=== PATIENT | female | born 1965 | race Caucasian/White ===

== ENCOUNTER 2018-08-26 04:55 | Emergency (ER) | payer OTHER ==
[2018-08-26] MEDS ORDERED: ONDANSETRON 4 MG/2 ML VIAL ONE (05:09)
[2018-08-26] MEDS ORDERED: HYDROmorphONE/DILAUDID 1 MG/ML INJ ONE (05:09)
[2018-08-26] MEDS ORDERED: NS 1,000 ML IV ONE (05:14)
[2018-08-26] MEDS ORDERED: ONDANSETRON 4 MG/2 ML VIAL IVP ONE (05:16)
[2018-08-26] MEDS ORDERED: KETOROLAC 15 MG/1 ML SDV ONE (05:21)
[2018-08-26] MEDS ORDERED: HYDROmorphONE/DILAUDID 1 MG/ML INJ IVP ONE ×2 (05:22→05:40)
[2018-08-26] MEDS ORDERED: KETOROLAC 15 MG/1 ML SDV IVP ONE (05:22)
[2018-08-26 05:47] LABS: PLATELET COUNT 220 10^3/uL (150-400)
--- NOTE | 2018-08-26 05:55 | EDPHY ---
H & P Stated Complaint: R flank pain, Hx kidney stones Time Seen by Provider: 08/26/18 05:38 HPI/ROS: HPI The patient presents with right-sided flank pain which began at 3:00 a.m. Suddenly and awoke her from sleep. The pain is achy, constant, associated with nausea and vomiting. She does not have any dysuria, hematuria. She does not have a fever. She has a history of polycystic kidney disease and has had both pyelonephritis and ureterolithiasis requiring retrieval. Her urologist is Dr. Cruz.. REVIEW OF SYSTEMS 10 systems were reviewed and negative with the exception of the elements mentioned in the history of present illness. PMHx: Polycystic kidney disease, hypertension Soc Hx: Here with her PHYSICAL General Appearance: Alert, no distress Eyes: Pupils equal and round no pallor or injection ENT, Mouth: Mucous membranes moist Respiratory: There are no retractions, lungs are clear to auscultation Cardiovascular: Regular rate and rhythm Gastrointestinal: Abdomen is soft and non-tender, no masses, bowel sounds normal Neurological: A&O, moves all extremities Skin: Warm and dry, no rashes Musculoskeletal: Neck is supple non tender Extremities: symmetrical, full range of motion Psychiatric: Patient is oriented X 3, there is no agitation Source: Patient Exam Limitations: No limitations - Personal History LMP (Females 10-55): 8-14 Days Ago Current Tetanus/Diphtheria Vaccine: Yes Current Tetanus Diphtheria and Acellular Pertussis (TDAP): Yes - Medical/Surgical History Hx Asthma: No Hx Chronic Respiratory Disease: No Hx Diabetes: No Hx Cardiac Disease: No Hx Renal Disease: Yes Hx Cirrhosis: No Hx Alcoholism: No Hx HIV/AIDS: No Hx Splenectomy or Spleen Trauma: No Other PMH: pmh- Polycystic kidney dz, htn - Social History Smoking Status: Never smoked Constitutional: Initial Vital Signs Temperature (C) 36.6 C 08/26/18 05:04 Heart Rate 77 08/26/18 05:04 Respiratory Rate 16 08/26/18 05:04 Blood Pressure 167/73 H 08/26/18 05:04 O2 Sat (%) 95 08/26/18 05:04 O2 Delivery Mode Room Air Allergies/Adverse Reactions: No Known Allergies Allergy (Verified 08/26/18 09:46) Home Medications: Medication Instructions Recorded DULoxetine [Cymbalta 60 MG (*)] 60 mg PO DAILY 08/26/18 Phenazopyridine HCl [Urinary Pain 1 - 2 tab PO TID PRN 08/26/18 Relief] Medical Decision Making - Diagnostics Imaging Results: Ultrasound kidneys shows polycystic kidney disease bilaterally with stones in both kidneys, there is mild right-sided hydronephrosis with no ureteral jet seen on the right, interpreted by direct Radiology. Imaging: I viewed and interpreted images myself Differential Diagnosis: 53-year-old female with history of polycystic kidney disease, ureterolithiasis, pyelonephritis presents from home with right-sided flank pain for the last several hours associated with nausea and vomiting. I suspect ureterolithiasis though also consider pyelonephritis, less likely appendicitis or diverticulitis. In the emergency department, patient received IV fluid, Zofran, medication for pain. Labs were checked, renal function was normal UA demonstrates hematuria. Ultrasound was ordered. Patient had labs demonstrating normal renal function and hematuria with no signs of urinary infection. She felt better after receiving fluids and medication for pain. Ultrasound demonstrated mild right-sided hydro though did not identify any obstructing stone. She feels well enough to go home and will be discharged with a strainer for her urine. She does follow with Dr. Cruz of Urology and I have advised her to make a follow-up appointment with him. She was given medication for pain. - Data Points Laboratory Results: Laboratory Results 08/26/18 05:20 08/26/18 05:20 Medications Given: Discontinued Medications Hydromorphone HCl (Dilaudid) 0.5 mg IVP EDNOW ONE Stop: 08/26/18 05:23 Last Admin: 08/26/18 05:24 Dose: 0.5 mg Hydromorphone HCl (Dilaudid) 0.5 mg IVP EDNOW ONE Stop: 08/26/18 05:41 Last Admin: 08/26/18 05:41 Dose: 0.5 mg Sodium Chloride (Ns) 1,000 mls @ 0 mls/hr IV ONCE ONE; Wide Open PRN Reason: Protocol Stop: 08/26/18 05:15 Last Admin: 08/26/18 05:17 Dose: 1,000 mls Ketorolac Tromethamine (Toradol) 15 mg IVP EDNOW ONE Stop: 08/26/18 05:23 Last Admin: 08/26/18 05:23 Dose: 15 mg Ondansetron HCl (Zofran) 4 mg IVP EDNOW ONE Stop: 08/26/18 05:17 Last Admin: 08/26/18 05:18 Dose: 4 mg Ondansetron HCl (Zofran Odt 4 Mg Prepack#2) 1 btl TAKEHOME EDNOW ONE Stop: 08/26/18 06:41 Last Admin: 08/26/18 07:33 Dose: 1 btl Oxycodone/Acetaminophen (Percocet 5/325mg Prepack#4) 1 btl TAKEHOME EDNOW ONE Stop: 08/26/18 06:41 Last Admin: 08/26/18 07:32 Dose: 1 btl Departure - Departure Disposition: Home, Routine, Self-Care Clinical Impression: Ureterolithiasis Condition: Good Instructions: Oxycodone/Acetaminophen (By mouth), Ondansetron (By injection), Renal Colic (ED) Additional Instructions: 1. Take Ibuprofen or Motrin 600 mg by mouth three times a day. 2. Percocet as needed for severe pain 3. Flomax as directed 4. Zofran as needed for nausea 5. Strain urine as directed 6. Return to the Emergency Department for intractable pain, fever or vomiting. 7. Followup with the urologist you have been referred to for unimproved symptoms. Referrals: Magdaleno Cruz MD [Medical Doctor] - As per Instructions
[2018-08-26] MEDS ORDERED: OXYCODONE/APAP 5/325MG PREPACK#4 BTL TAKEHOME ONE (06:40)
[2018-08-26] MEDS ORDERED: ONDANSETRON 4MG PREPACK#2 BTL TAKEHOME ONE (06:40)
[2018-08-26 07:12] VITALS: BP 152/82
[2018-08-27] MEDS ORDERED: fentaNYL 250 MCG/5 ML INJ ONE (12:17)
[2018-08-27] MEDS ORDERED: GLYCOPYRROLATE 0.2 MG/1 ML VIAL ONE (12:18)
[2018-08-27] MEDS ORDERED: PROPOFOL 200 MG/20 ML VIAL ONE (12:18)
[2018-08-27] MEDS ORDERED: ROCURONIUM 50 MG/5 ML VIAL ONE (12:18)
[2018-08-27] MEDS ORDERED: PROPOFOL/EMULSION 500 MG/50 ML BOTTLE IV ONE (12:18)
[2018-08-27] MEDS ORDERED: ONDANSETRON 4 MG/2 ML VIAL ONE (12:19)
[2018-08-27] MEDS ORDERED: KETOROLAC 30 MG/1 ML SDV ONE (13:17)
[2018-08-27] MEDS ORDERED: DEXAMETHASONE 4 MG/ML VIAL ONE (13:17)
[2018-08-27] MEDS ORDERED: SUGAMMADEX SODIUM 200 MG/2 ML VIAL IVP ONE (13:40)
== END 2018-08-26 07:41 | disposition home or self-care (01) ==
DX: N20.1 Calculus of ureter (principal); Q61.3 Polycystic kidney, unspecified; I10 Essential (primary) hypertension; E86.9 Volume depletion, unspecified
CPT/HCPCS: 96374; J1100; J1170; J1885; J2405; J2704; J3010

== ENCOUNTER 2018-08-26 09:44 | Observation (INO) | payer OTHER ==
--- NOTE | 2018-08-26 10:02 | EDPHY ---
H & P Stated Complaint: dx with r kidney stone unable to manage pain/nausea at home Time Seen by Provider: 08/26/18 10:02 HPI/ROS: HPI: This is a 53-year-old female who presents with Chief Complaint: dx with r kidney stone unable to manage pain/nausea at home Location: Right flank Quality: Pain and stone Duration: Since yesterday at 3:00 a.m. Signs and Symptoms: no fever, + nausea, + vomiting, no hematemesis, no blood in stool, no abdominal bloating, no diarrhea, no back pain, no urinary symptoms, no vaginal bleeding/discharge, no indigestion, no chest pain, no shortness of breath Timing: Acute Severity: Moderate to severe Context: Patient has a history of polycystic kidney disease, hypertension, kidney stones followed by Urology Dr. Cruz, re-presented to the ER 4 hr after being discharged with continued right flank pain, nausea and 2 episodes of vomiting. Patient reports that she took the Zofran but still vomited x2. The Percocet is not controlling her pain. She has urinated twice since leaving the ER but only scant amounts. She denies it being dark in color. Modifying Factors: See above Comment: ROS: A comprehensive 10 system review of systems is otherwise negative aside from elements mentioned in the history of present illness. MEDICAL/SURGICAL/SOCIAL HISTORY: Medical history: Polycystic kidney dz, htn, kidney stones. LMP 1-2 weeks ago. Surgical history: Denies Social history: Nonsmoker. . Family history noncontributory. CONSTITUTIONAL: Moderate distress, polite and cooperative, nontoxic-appearing, writhing in bed, middle-aged white female, at bedside, awake and alert HEENT: Atraumatic and normocephalic, PERRL, EOMI. Nares patent; no rhinorrhea; no nasal mucosal edema. Tympanic membranes clear. Oropharynx clear, no exudate and moist pink mucosa. Airway patent. No lymphadenopathy. No meningismus. Cardiovascular: Normal S1/S2, regular rate, regular rhythm, without murmur rub or gallop. PULMONARY/CHEST: Symmetrical and nontender. Clear to auscultation bilaterally. Good air movement. No accessory muscle usage. ABDOMEN: Soft, nondistended, moderate right flank tenderness, no rebound, + guarding, no peritoneal signs, no masses or organomegaly. No CVAT. EXTREMITIES: 2/2 pulses, strength 5/5, no deformities, no clubbing, no cyanosis or edema. NEUROLOGICAL: no focal neuro deficits. GCS 15. SKIN: Warm and dry, no erythema. no rash. Good capillary refill. Source: Patient, Old records Exam Limitations: No limitations - Personal History LMP (Females 10-55): 8-14 Days Ago Current Tetanus Diphtheria and Acellular Pertussis (TDAP): Yes - Medical/Surgical History Hx Asthma: No Hx Chronic Respiratory Disease: No Hx Diabetes: No Hx Cardiac Disease: No Hx Renal Disease: Yes Hx Cirrhosis: No Hx Alcoholism: No Hx HIV/AIDS: No Hx Splenectomy or Spleen Trauma: No Other PMH: pmh- Polycystic kidney dz, htn kidney stones - Social History Smoking Status: Never smoked Constitutional: Initial Vital Signs Temperature (C) 36.4 C 08/26/18 09:47 Heart Rate 72 08/26/18 09:47 Respiratory Rate 17 08/26/18 09:47 Blood Pressure 161/90 H 08/26/18 09:47 O2 Sat (%) 96 08/26/18 09:47 O2 Delivery Mode Room Air Allergies/Adverse Reactions: No Known Allergies Allergy (Verified 08/26/18 09:46) Home Medications: Medication Instructions Recorded DULoxetine [Cymbalta 60 MG (*)] 60 mg PO DAILY 08/26/18 Phenazopyridine HCl [Urinary Pain 1 - 2 tab PO TID PRN 08/26/18 Relief] Medical Decision Making - Diagnostics Imaging Results: Imaging Impressions Abdomen/Pelvis CT 08/26/18 11:20 Impression: 1. Bilateral nephrolithiasis. 2. 3 adjacent calculi proximal right ureter as well as an additional calculus distal right ureter above the UVJ with mild to moderate right-sided hydronephrosis. 3. Polycystic kidney disease with numerous liver cysts also noted. Attention: This CT examination is specifically designed to evaluate patients who are clinically suspected of having acute obstructive uropathy. This examination does not use radiographic contrast, and as such, provides only a limited evaluation of the abdomen, pelvis and retroperitoneum. If there is further clinical suspicion for pathological conditions other than obstructive uropathy, a complete CT evaluation of the abdomen and pelvis utilizing intravenous, oral, and rectal contrast should be considered. Findings discussed with Citlali Jones PAC at 12:51 hour, 08/26/2018. ED Course/Re-evaluation: Vital signs reviewed and show elevated blood pressure likely secondary to pain. IV access, laboratory studies, urinalysis ordered Patient given 2 L normal saline, IV fentanyl 100 mcg, and IV Zofran 4 mg, IV Toradol 15 mg 1010: Reviewed chart which shows retroperitoneal abdomen completed this morning which showed mild right-sided hydronephrosis with ureteral jet was not visualized on the right as well as within the bladder this could represent secondary findings of right-sided ureteral calculus. 1011: CT abdomen and pelvis without scan ordered. 1119: Urinalysis shows 1+ ketones but no blood, no signs of infection. 1140: Labs reviewed. No leukocytosis, macrocytosis without anemia, no platelet dysfunction, potassium 3.9, creatinine 1.0 1210: Notified by RN that patient still complaining of pain. IV fentanyl 100 mcg and IV promethazine 12.5 mg given 1300: Called by Dr. Moran who reports that CT scan shows for ureteral stones 3 or proximal to the UVJ measuring around 3 mm in 1 is distal to the UVJ measuring 4 x 3 mm 1303: Assessed patient who reports that fentanyl has no benefit and is requesting Dilaudid. IV Dilaudid 1 mg and p. O. Flomax given. She is amenable to admission for uncontrolled pain, uncontrolled nausea, ureterolithiasis with moderate hydronephrosis. ED decision made to consult hospitalist and [facility]. Spoke with Dr. Fernandez who kindly agrees to admit patient to Dr. Patel with intractable right flank pain, multiple ureteral stones, moderate hydronephrosis and inability to take oral medications. Spoke with Dr. Patel, urology, who kindly agrees to consult on patient-advises Flomax, Toradol 15 mg Q 6, nifedipine 10 mg twice daily. This patient was seen under the supervision of my secondary supervising physician. I evaluated care for this patient with attending. Discussed this patient with Dr. Garcia. Differential Diagnosis: Flank pain including but not limited to musculoskeletal causes, kidney stone, pyelonephritis, shingles, and intra-abdominal causes such as diverticulitis and appendicitis. - Data Points Laboratory Results: Laboratory Results 08/26/18 10:40 08/26/18 10:40 08/26/18 08/26/18 08/26/18 10:40 10:40 10:40 WBC 9.12 10^3/uL 10^3/uL (3.80-9.50) RBC 4.16 10^6/uL L 10^6/uL (4.18-5.33) Hgb 14.4 g/dL g/dL (12.6-16.3) Hct 42.9 % % (38.0-47.0) MCV 103.1 fL H fL (81.5-99.8) MCH 34.6 pg H pg (27.9-34.1) MCHC 33.6 g/dL g/dL (32.4-36.7) RDW 11.9 % % (11.5-15.2) Plt Count 199 10^3/uL 10^3/uL (150-400) MPV 9.4 fL fL (8.7-11.7) Neut % (Auto) 80.2 % H % (39.3-74.2) Lymph % (Auto) 12.0 % L % (15.0-45.0) [place] % (Auto) 7.0 % % (4.5-13.0) Eos % (Auto) 0.1 % L % (0.6-7.6) Baso % (Auto) 0.3 % % (0.3-1.7) Nucleat RBC Rel Count 0.0 % % (0.0-0.2) Absolute Neuts (auto) 7.31 10^3/uL H 10^3/uL (1.70-6.50) Absolute Lymphs (auto) 1.09 10^3/uL 10^3/uL (1.00-3.00) Absolute Monos (auto) 0.64 10^3/uL 10^3/uL (0.30-0.80) Absolute Eos (auto) 0.01 10^3/uL L 10^3/uL (0.03-0.40) Absolute Basos (auto) 0.03 10^3/uL 10^3/uL (0.02-0.10) Absolute Nucleated RBC 0.00 10^3/uL 10^3/uL (0-0.01) Immature Gran % 0.4 % % (0.0-1.1) Immature Gran # 0.04 10^3/uL 10^3/uL (0.00-0.10) Sodium 138 mEq/L mEq/L (135-145) Potassium 3.9 mEq/L mEq/L (3.5-5.2) Chloride 100 mEq/L mEq/L (97-110) Carbon Dioxide 29 mEq/l mEq/l (22-31) Anion Gap 9 mEq/L mEq/L (6-14) BUN 18 mg/dL mg/dL (7-23) Creatinine 1.0 mg/dL mg/dL (0.6-1.0) Estimated GFR 58 Glucose 101 mg/dL H mg/dL (70-100) Calcium 8.8 mg/dL mg/dL (8.5-10.4) Urine Color YELLOW Urine Appearance MODERATELY TURBID Urine pH 9.0 H (5.0-7.5) Ur Specific [place] 1.011 (1.002-1.030) Urine Protein NEGATIVE (NEGATIVE) Urine Ketones 1+ H (NEGATIVE) Urine Blood NEGATIVE (NEGATIVE) Urine Nitrate NEGATIVE (NEGATIVE) Urine Bilirubin NEGATIVE (NEGATIVE) Urine Urobilinogen NEGATIVE EU EU (0.2-1.0) Ur Leukocyte Esterase NEGATIVE (NEGATIVE) Urine Glucose NEGATIVE (NEGATIVE) Medications Given: Discontinued Medications Fentanyl (Sublimaze) 100 mcg IVP EDNOW ONE Stop: 08/26/18 10:04 Last Admin: 08/26/18 10:58 Dose: 100 mcg Fentanyl (Sublimaze) 100 mcg IVP EDNOW ONE Stop: 08/26/18 12:10 Last Admin: 08/26/18 12:56 Dose: Not Given Hydromorphone HCl (Dilaudid) 1 mg IVP EDNOW ONE Stop: 08/26/18 13:04 Last Admin: 08/26/18 13:13 Dose: 1 mg Sodium Chloride (Ns) 1,000 mls @ 0 mls/hr IV ONCE ONE; Wide Open PRN Reason: Protocol Stop: 08/26/18 10:04 Last Admin: 08/26/18 10:58 Dose: 1,000 mls Ketorolac Tromethamine (Toradol) 15 mg IVP EDNOW ONE Stop: 08/26/18 10:05 Last Admin: 08/26/18 10:58 Dose: 15 mg Ondansetron HCl (Zofran) 4 mg IVP EDNOW ONE Stop: 08/26/18 10:04 Last Admin: 02/23/19 10:59 Dose: 4 mg Promethazine HCl (Phenergan) 12.5 mg IVP EDNOW ONE Stop: 08/26/18 11:57 Last Admin: 08/26/18 12:00 Dose: 12.5 mg Promethazine HCl (Phenergan) 12.5 mg IVP ONCE ONE Stop: 08/26/18 12:11 Last Admin: 08/26/18 12:56 Dose: Not Given Tamsulosin HCl (Flomax) 0.4 mg PO EDNOW ONE Stop: 08/26/18 13:15 Last Admin: 08/26/18 13:37 Dose: 0.4 mg Departure - Departure Disposition: [facility] Inpatient Acute Clinical Impression: Ureterolithiasis, Renal colic on right side, Hydronephrosis, right, Intractable abdominal pain, Unable to take medication Condition: Fair
[2018-08-26] MEDS ORDERED: fentaNYL 100 MCG/2 ML INJ IVP ONE ×2 (10:03→12:09)
[2018-08-26] MEDS ORDERED: NS 1,000 ML IV ONE (10:03)
[2018-08-26] MEDS ORDERED: ONDANSETRON 4 MG/2 ML VIAL IVP ONE (10:03)
[2018-08-26] MEDS ORDERED: KETOROLAC 15 MG/1 ML SDV IVP ONE (10:04)
[2018-08-26 10:57] LABS: PLATELET COUNT 199 10^3/uL (150-400)
[2018-08-26] MEDS ORDERED: PROMETHAZINE HCL 25 MG/ML INJ IVP ONE ×2 (11:56→12:10)
[2018-08-26] MEDS ORDERED: HYDROmorphONE/DILAUDID 2 MG/ML INJ IVP ONE (13:03)
[2018-08-26] MEDS ORDERED: TAMSULOSIN HCL 0.4 MG CAP PO ONE (13:14)
[2018-08-26] MEDS ORDERED: oxyCODONE IR 5 MG TAB PO PRN (13:44)
[2018-08-26] MEDS ORDERED: ONDANSETRON DISINTEGRATING 4 MG TAB PO PRN (13:44)
[2018-08-26] MEDS ORDERED: PROMETHAZINE HCL 25 MG/ML INJ IVP PRN (13:44)
[2018-08-26] MEDS ORDERED: ACETAMINOPHEN 325 MG TAB PO PRN (13:44)
--- NOTE | 2018-08-26 14:18 | PDGENHP ---
History and Physical - Chief Complaint right flank pain - History of Present Illness 53 yo F with PMH of polycystic kidney disease as well as nephrolithiasis presenting with severe right sided flank pain beginning at 3am. Pain woke her from sleep, was severe and associated with n/v. She was initially seen in ER this am and was discharged home with diagnosis of presumed kidney stone, but after returning home pain remained severe with profound n/v and inability to tolerate PO so she returned to ER. On return an abd CT was obtained showing 4 right sided ureteral stones with associated hydronephrosis. She is followed by Dr. Cruz of urology. Her pain is currently improved after receiving dilaudid and she does not currently complain of nausea. History Information - Allergies/Home Medication List Allergies/Adverse Reactions: No Known Allergies Allergy (Verified 08/26/18 09:46) Home Medications: DULoxetine [Cymbalta 60 MG (*)] 60 mg PO DAILY 08/26/18 [Last Taken 08/24/18] Phenazopyridine HCl [Urinary Pain Relief] 1 - 2 tab PO TID PRN 08/26/18 [Last Taken Unknown] I have personally reviewed and updated: family history, medical history, social history, surgical history - Past Medical History psychiatric history Additional medical history: polycystic kidney disease. uretero/nephrolithiasis - Surgical History Additional surgical history: lithotripsy and stone removal - Family History Additional family history: PKD in mother - Social History Smoking Status: Never smoked Alcohol Use: Rarely Drug Use: None Additional social history: , 3 adult children Review of Systems Review of Systems: ROS: 10pt was reviewed & negative except for what was stated in HPI & below Physical Exam Physical Exam: Temp Pulse Resp BP Pulse Ox 36.4 C 72 17 161/90 H 96 08/26/18 09:47 08/26/18 09:47 08/26/18 09:47 08/26/18 09:47 08/26/18 09:47 Constitutional: no apparent distress, appears nourished Eyes: PERRL, anicteric sclera Ears, Nose, Mouth, Throat: moist mucous membranes, hearing normal Cardiovascular: regular rate and rhythym, no murmur, rub, or gallop, No edema Respiratory: no respiratory distress, no rales or rhonchi, clear to auscultation Gastrointestinal: normoactive bowel sounds, soft, non-tender abdomen, tenderness (right cva tenderness) Genitourinary: no bladder tenderness Skin: warm, normal color Musculoskeletal: full muscle strength Neurologic: AAOx3 Psychiatric: interacting appropriately, not anxious, not encephalopathic Lab Data & Imaging Review 08/26/18 10:40 08/26/18 10:40 WBC 9.12 10^3/uL (3.80-9.50) 08/26/18 10:40 RBC 4.16 10^6/uL (4.18-5.33) L 08/26/18 10:40 Hgb 14.4 g/dL (12.6-16.3) 08/26/18 10:40 Hct 42.9 % (38.0-47.0) 08/26/18 10:40 MCV 103.1 fL (81.5-99.8) H 08/26/18 10:40 MCH 34.6 pg (27.9-34.1) H 08/26/18 10:40 MCHC 33.6 g/dL (32.4-36.7) 08/26/18 10:40 RDW 11.9 % (11.5-15.2) 08/26/18 10:40 Plt Count 199 10^3/uL (150-400) 08/26/18 10:40 MPV 9.4 fL (8.7-11.7) 08/26/18 10:40 Neut % (Auto) 80.2 % (39.3-74.2) H 08/26/18 10:40 Lymph % (Auto) 12.0 % (15.0-45.0) L 08/26/18 10:40 [place] % (Auto) 7.0 % (4.5-13.0) 08/26/18 10:40 Eos % (Auto) 0.1 % (0.6-7.6) L 08/26/18 10:40 Baso % (Auto) 0.3 % (0.3-1.7) 08/26/18 10:40 Nucleat RBC Rel Count 0.0 % (0.0-0.2) 08/26/18 10:40 Absolute Neuts (auto) 7.31 10^3/uL (1.70-6.50) H 08/26/18 10:40 Absolute Lymphs (auto) 1.09 10^3/uL (1.00-3.00) 08/26/18 10:40 Absolute Monos (auto) 0.64 10^3/uL (0.30-0.80) 08/26/18 10:40 Absolute Eos (auto) 0.01 10^3/uL (0.03-0.40) L 08/26/18 10:40 Absolute Basos (auto) 0.03 10^3/uL (0.02-0.10) 08/26/18 10:40 Absolute Nucleated RBC 0.00 10^3/uL (0-0.01) 08/26/18 10:40 Immature Gran % 0.4 % (0.0-1.1) 08/26/18 10:40 Immature Gran # 0.04 10^3/uL (0.00-0.10) 08/26/18 10:40 Sodium 138 mEq/L (135-145) 08/26/18 10:40 Potassium 3.9 mEq/L (3.5-5.2) 08/26/18 10:40 Chloride 100 mEq/L (97-110) 08/26/18 10:40 Carbon Dioxide 29 mEq/l (22-31) 08/26/18 10:40 Anion Gap 9 mEq/L (6-14) 08/26/18 10:40 BUN 18 mg/dL (7-23) 08/26/18 10:40 Creatinine 1.0 mg/dL (0.6-1.0) 08/26/18 10:40 Estimated GFR 58 08/26/18 10:40 Glucose 101 mg/dL (70-100) H 08/26/18 10:40 Calcium 8.8 mg/dL (8.5-10.4) 08/26/18 10:40 Urine Color YELLOW 08/26/18 10:40 Urine Appearance MODERATELY TURBID 08/26/18 10:40 Urine pH 9.0 (5.0-7.5) H 08/26/18 10:40 Ur Specific [place] 1.011 (1.002-1.030) 08/26/18 10:40 Urine Protein NEGATIVE (NEGATIVE) 08/26/18 10:40 Urine Ketones 1+ (NEGATIVE) H 08/26/18 10:40 Urine Blood NEGATIVE (NEGATIVE) 08/26/18 10:40 Urine Nitrate NEGATIVE (NEGATIVE) 08/26/18 10:40 Urine Bilirubin NEGATIVE (NEGATIVE) 08/26/18 10:40 Urine Urobilinogen NEGATIVE EU (0.2-1.0) 08/26/18 10:40 Ur Leukocyte Esterase NEGATIVE (NEGATIVE) 08/26/18 10:40 Urine Glucose NEGATIVE (NEGATIVE) 08/26/18 10:40 Visualized and Interpreted imaging results: Yes Interpretation: abd CT: polycystic kidneys, 3 proximal and 1 distal right sided ureteral stones with associated hydronephrosis Assessment & Plan Assessment: Ureterolithiasis (Acute) Renal colic on right side (Acute) Hydronephrosis, right (Acute) Intractable abdominal pain (Acute) Unable to take medication (Acute) 53 yo F with PMH of PKD and hx of nephrolithiasis admitted with severe right sided flank pain and ureterolithiasis # ureterolithiasis: patient with 4 small stones present in her right ureter with associated severe pain and n/v, mild associated hydronephrosis. She has been to ER twice today and essentially has not been able to tolerate OP management. Will start IVF, tamsulosin, IV opiates and antiemetics. Urology consulted and suspect she will require ureteral stent due to severity of her pain and that multiple stones involved. Will keep patient NPO after midnight. # polycystic kidney disease: with preserved renal function currently, patient more concerned regarding above due to this and underlying kidney issues, as above # n/v: likely largely due to pain, IV phenergan and zofran # macrocytosis: chronic, stable, patient denies significant etoh use, defer to op w/u # observation status, high risk requiring IV opiates Patient new to my care. Old records reviewed and summarized as above. Care plan reviewed with ER doctor, further hx obtained from patients present at bedside.
[2018-08-26] MEDS: ONDANSETRON 4 MG/2 ML VIAL IVP PRN ×2 (16:20→20:45)
[2018-08-26] MEDS: LORazepam 2 MG/ML INJ IVP PRN (16:28)
--- NOTE | 2018-08-26 16:32 | ASMTCMCOM ---
CM Note CM Note Notes: Pt admitted to hospital for kidney stones. No therapies ordered, anticipate she will dc home w/support of when medically stable. DC Plan: Independent Date Signed: 08/26/2018 04:31 PM Electronically Signed By:Sabrina Medrano RN
[2018-08-26] MEDS: HYDROmorphONE/DILAUDID 1 MG/ML INJ IVP PRN ×3 (18:45→23:57)
[2018-08-26] MEDS ORDERED: PHENAZOPYRIDINE HCL 100 MG TAB PO PRN (19:00)
[2018-08-26] MEDS: NS 1,000 ML IV SCH (23:03)
[2018-08-26] MEDS ORDERED: diphenhydrAMINE 25 MG CAP PO PRN (23:45)
[2018-08-27] MEDS: LORazepam 2 MG/ML INJ IVP PRN ×2 (00:44→19:59)
[2018-08-27] MEDS: HYDROCODONE/APAP 5/325 TAB PO PRN ×2 (04:36→08:22)
[2018-08-27 04:55] LABS: PLATELET COUNT 155 10^3/uL (150-400)
[2018-08-27] MEDS: NS 1,000 ML IV SCH (05:28)
[2018-08-27] MEDS: TAMSULOSIN HCL 0.4 MG CAP PO SCH (08:22)
[2018-08-27] MEDS: ONDANSETRON 4 MG/2 ML VIAL IVP PRN (08:26)
[2018-08-27] MEDS ORDERED: LIDOCAINE 2% JELLY 20 ML (UROJECT) ONE (11:00)
[2018-08-27] MEDS ORDERED: IOPAMIDOL (ISOVUE-M 300) 15 ML VIAL ONE (11:01)
[2018-08-27] MEDS ORDERED: MIDAZOLAM 2 MG/2 ML VIAL ONE (11:58)
[2018-08-27] MEDS ORDERED: MIDAZOLAM 2 MG/2 ML VIAL IVP ONE (11:59)
--- NOTE | 2018-08-27 12:02 | PDANEPAE ---
ANE History of Present Illness Right flank pain. Ureteral stones ANE Past Medical History - Cardiovascular History Hx Hypertension: No Hx Arrhythmias: No Hx Chest Pain: No Hx Coronary Artery / Peripheral Vascular Disease: No Hx CHF / Valvular Disease: No Hx Palpitations: No - Pulmonary History Hx COPD: No Hx Asthma/Reactive Airway Disease: No Hx Recent Upper Respiratory Infection: No Hx Oxygen in Use at Home: No Hx Sleep Apnea: No Sleep Apnea Screening Result - Last Documented: Negative - Endocrine History Hx Diabetes: No Hypothyroid: No Hyperthyroid: No Obesity: no - Renal History Hx Renal Disorders: Yes - Chronic Pain History Chronic Pain: No ANE Review of Systems Review of Systems: - Exercise capacity METS (RN): 4 METS ANE Patient History - Allergies Allergies/Adverse Reactions: No Known Allergies Allergy (Verified 08/26/18 09:46) - Home Medications Home Medications: DULoxetine [Cymbalta 60 MG (*)] 60 mg PO DAILY 08/26/18 [Last Taken 08/24/18] Phenazopyridine HCl [Urinary Pain Relief] 1 - 2 tab PO TID PRN 08/26/18 [Last Taken Unknown] - NPO status NPO Status: no food or drink >8 hours NPO Since - Liquids (Date): 08/27/18 NPO Since - Liquids (Time): 00:01 NPO Since - Solids (Date): 08/27/18 NPO Since - Solids (Time): 00:01 - Anes Hx Anes Hx: post operative nausea - Smoking Hx Smoking Status: Never smoked - Alcohol Use Alcohol Use: Rarely - Family Anes Hx Family Anes Hx: none ANE Labs/Vital Signs - Labs Result Diagrams: 08/27/18 04:44 08/27/18 04:44 - Vital Signs Blood Pressure: 140/91 Heart Rate: 82 Respiratory Rate: 16 O2 Sat (%): 94 Height: 172.72 cm Weight: 58.2 kg ANE Physical Exam - Airway Neck exam: FROM Mallampati Score: Class 1 - Pulmonary Pulmonary: no respiratory distress, no rales or rhonchi - Cardiovascular Cardiovascular: regular rate and rhythym, no murmur, rub, or gallop - ASA Status ASA Status: II ANE Anesthesia Plan Anesthesia Plan: general endotracheal anesthesia
[2018-08-27] MEDS ORDERED: CEFAZOLIN 2 GM/DEXTROSE/100 ML BAG IV ONE (12:44)
--- NOTE | 2018-08-27 12:51 | SOAPPROG ---
SHAHRZAD Progress Note Assessment/Plan: Assessment: Still w pain, interested in definitive mgmt, reasonable here as this has not improved w definitive mgmt - Plan: 1. To OR for right ureteroscopy 08/27/18 12:47 Objective: Vital Signs Temp Pulse Resp BP Pulse Ox 36.4 C 82 16 140/91 H 94 08/27/18 11:50 08/27/18 12:02 08/27/18 12:02 08/27/18 12:02 08/27/18 12:02 Laboratory Results 08/27/18 04:44 08/27/18 04:44 08/26/18 08/27/18 08/28/18 05:59 05:59 05:59 Intake Total 3150 Output Total 1525 Balance 1625 - Time Spent With Patient Time Spent With Patient: 33 min - Pending Discharge Pending Discharge Within 24 Hours: Yes Pending Discharge Date: 08/28/18 Pending Discharge Time: 11:00 Physical Exam - Physical Exam EENT: PERRL/EOMI Neck: non-tender Respiratory: chest non-tender Cardiac/Chest: normal peripheral pulses Abdomen: other (CVA tenderness) Pelvic Exam: deferred Rectal: deferred Back: Normal inspection Skin: normal color Lymphatic: no adenopathy Extremities: normal range of motion Neuro/Psych: no motor/sensory deficits ICD10 Worksheet Patient Problems: Problems Problem Status Onset Hydronephrosis, right Acute Intractable abdominal pain Acute Renal colic on right side Acute Unable to take medication Acute Ureterolithiasis Acute Pyelonephritis Acute
[2018-08-27] MEDS ORDERED: NALOXONE HCL 0.4 MG/ML INJ IVP PRN (13:58)
[2018-08-27] MEDS ORDERED: HYDROmorphONE/DILAUDID 2 MG/ML INJ IVP PRN (13:58)
[2018-08-27] MEDS ORDERED: ONDANSETRON 4 MG/2 ML VIAL IVP PRN (13:58)
[2018-08-27] MEDS ORDERED: fentaNYL 100 MCG/2 ML INJ IVP PRN (13:58)
[2018-08-27] MEDS ORDERED: HYDROCODONE/APAP 5/325 TAB PO PRN (13:58)
--- NOTE | 2018-08-27 14:00 | POSTANESTH ---
Post Anesthetic Evaluation Cardiovascular Status: Normal, Stable Respiratory Status: Normal, Stable Level of Consciousness/Mental Status: Can Participate in Eval Pain Control: Adequate, Prn Tx Ordered Nausea/Vomiting Control: Adequate, Prn Tx Ordered Complications Possibly Related to Anesthesia: None Noted
[2018-08-27] MEDS ORDERED: ALBUTEROL 3 ML DEYVIAL ONE ×2 (14:06→14:43)
--- NOTE | 2018-08-27 14:16 | POSTOPPROG ---
Post Op Note Date of Operation: 08/27/18 Surgeon: Ottoniel Vu Anesthesia: GET(General Endotracheal) Pre-op Diagnosis: right ureteral stones x 4 Post-op Diagnosis: same Indication: obstructing stones and pain Procedure: right ureteroscopy and laser lithotripsy of stones , low pressure Findings: stones removed - stent placed - Inf/Abcess present in the surg proc area at time of surgery?: No Depth: Organ Space EBL: Minimal Total fluids administered: see rec Complications: none Drains: Other (stent, right, JJ)
[2018-08-27] MEDS ORDERED: HYDROmorphONE/DILAUDID 2 MG/ML INJ ONE (14:18)
[2018-08-27] MEDS ORDERED: ALBUTEROL 3 ML DEYVIAL IH ONE (14:23)
[2018-08-27] MEDS: DULoxetine 60 MG CAP PO SCH (15:57)
--- NOTE | 2018-08-27 16:01 | HOSPPROG ---
Hospitalist Progress Note Assessment/Plan: 53 yo F with PMH of PKD and hx of nephrolithiasis admitted with severe right sided flank pain and ureterolithiasis # ureterolithiasis: patient with 4 small stones present in her right ureter with associated severe pain and n/v, mild associated hydronephrosis. Urology consulted and patient now s/p ureteroscopy. Plan is for collection of 24 hour urine for better understanding of multiple stones at once and ongoing treatment options # heidi: 2/2 partially obstructive ureteral stones as above, expect this to improve now s/p intervention, given 24 hour urine collection planned will hold off on starting IVF for now until cleared by urology as don't want to affect the urine findings # polycystic kidney disease: per urology not likely to be contributing to her stone formation, chronic and stable issue, avoiding renal toxins # n/v: likely largely due to pain, IV phenergan and zofran # macrocytosis: chronic, stable, patient denies significant etoh use, defer to op w/u # observation status, high risk requiring IV opiates Subjective: no significant overnight events, patient s/p ureteroscopy today and feeling better Objective: Vital Signs Temp Pulse Resp BP Pulse Ox 36.7 C 80 16 149/82 H 94 08/27/18 15:00 08/27/18 15:00 08/27/18 15:00 08/27/18 15:00 08/27/18 15:00 Laboratory Results 08/27/18 04:44 08/27/18 04:44 08/26/18 08/27/18 08/28/18 05:59 05:59 05:59 Intake Total 3150 740 Output Total 1525 320 Balance 1625 420 Constitutional: no apparent distress, appears nourished Eyes: PERRL, anicteric sclera Ears, Nose, Mouth, Throat: moist mucous membranes, hearing normal Cardiovascular: regular rate and rhythym, no murmur, rub, or gallop, No edema Respiratory: no respiratory distress, no rales or rhonchi, clear to auscultation Gastrointestinal: normoactive bowel sounds, soft, non-tender abdomen, tenderness (right cva tenderness) Genitourinary: no bladder tenderness Skin: warm, normal color Musculoskeletal: full muscle strength Neurologic: AAOx3 Psychiatric: interacting appropriately, not anxious, not encephalopathic ICD10 Worksheet Patient Problems: Problems Problem Status Onset Hydronephrosis, right Acute Intractable abdominal pain Acute Renal colic on right side Acute Unable to take medication Acute Ureterolithiasis Acute Pyelonephritis Acute
--- NOTE | 2018-08-27 21:05 | GOP ---
[f rep st] OPERATIVE REPORT DATE OF OPERATION: SURGEON: Ottoniel Vu MD PREOPERATIVE DIAGNOSIS: Right ureteral obstructing stones, 4 obstructing stones. POSTOPERATIVE DIAGNOSIS: 1. Right ureteral obstructing stones, 4 obstructing stones. 2. Renal colic. 3. Hydronephrosis. PROCEDURE PERFORMED: FINDINGS: SPECIMENS: Stones sent to Pathology for analysis. INDICATIONS: The patient is a very pleasant 53-year-old female with right renal colic, severe hydron ephrosis, and flank pain. She has a history of polycystic kidney disease and stones in the past. I did discuss that we would remove the stones and place a stent. She is aware that the stent needs to be removed in approximately 2 to 3 weeks. She expresses understanding that it is not designed to sta y in and must be removed. She is brought to the operating room for management of this. DESCRIPTION OF PROCEDURE: Patient was identified by name, medical record number, and wrist band; bro ught to the operating room; laid supine on table; and prepped and draped in the standard surgical fas hion. A 20[place] cystoscope was inserted into the bladder, and the entire bladder was visualized. The left and right ureteral orifices were noted to be in normal location. A glidewire was inserted in the in the right ureter x2. Ureteroscope was passed up to the level of the stone. Lase r lithotripsy of all the stones was performed, and there were 4 stones. We basketed out all these fr agments, sent the largest to Pathology for analysis, and a JJ stent was passed and noted to curl in t he renal pelvis and bladder. The bladder was emptied, and the patient was awakened from anesthesia, taken to the recovery room in stable condition. DRAINS: JJ stent placed. /[id number]/MODL
--- NOTE | 2018-08-27 22:05 | GCON ---
[f rep st] CONSULTATION DATE OF CONSULTATION: 08/26/2018 REASON FOR CONSULTATION: Right obstructing ureteral stone and flank pain, renal colic and hydronephr osis. HISTORY OF PRESENT ILLNESS: This is a 53-year-old female with past medical history of polycystic kid juan disease and nephrolithiasis who presents with right severe flank pain. She has multiple stones i n her right kidney. She is a patient of Dr. eDan. She has a large ureteral stone at the UVJ and three smaller stones behind this. I was asked to evaluate her, and she agrees to a plan of Toradol, IV fluids, and tamsulosin. If this does not improve, then we will plan on removing the stone tomorro w. ALLERGIES: No known drug allergies. HOME MEDICATIONS: Duloxetine and phenazopyridine. PAST MEDICAL HISTORY: Significant for polycystic kidney disease and multiple stones in the past. PAST SURGICAL HISTORY: Significant for lithotripsy and stone removal in the past. FAMILY HISTORY: Significant for polycystic kidney disease. SOCIAL HISTORY: Never smoked. Alcohol use rarely. with 3 children. REVIEW OF SYSTEMS: A 10-point review of systems was negative except as stated below. PHYSICAL EXAMINATION: VITAL SIGNS: Stable. Afebrile. Pulse is 72, respiratory rate is 17, blood p ressure is 161/90. CONSTITUTIONAL: No acute distress. HEENT: Normocephalic, atraumatic. Moist. No JVD. No cyanosis. RESPIRATORY: No retractions or lower extremity edema. GASTROINTESTINAL: Rig ht CVA tenderness is present with right lower quadrant tenderness as well. Nondistended, otherwise n ormal abdominal exam. GENITOURINARY: No bladder tenderness. SKIN: Warm. No lesions. MUSCULOSKEL ETAL: Full muscle strength. NEUROLOGIC: Alert and oriented x3. PSYCHIATRIC: Normal mood and affe ct. LABS: White count is 9, H and H are 14 and 42, creatinine 1.0. ASSESSMENT AND PLAN: Polycystic kidneys, three small proximal and one large distal right ureteral st one. PLAN: Start IV fluids, tamsulosin, Toradol, and IV opiates and antiemetics. Patient was in agreemen t with this plan, and we will make her n.p.o. at midnight. /[id number]/[facility] [place]
[2018-08-28] MEDS: SIMETHICONE 80 MG TAB CHEW PO PRN ×2 (03:01→08:24)
[2018-08-28] MEDS: TAMSULOSIN HCL 0.4 MG CAP PO SCH (08:20)
[2018-08-28] MEDS: DULoxetine 60 MG CAP PO SCH ×2 (08:20→08:21)
[2018-08-28 08:50] VITALS: BP 150/68
--- NOTE | 2018-08-28 09:02 | HOSPPROG ---
Hospitalist Progress Note Assessment/Plan: 53 yo F with PMH of PKD and hx of nephrolithiasis admitted with severe right sided flank pain and ureterolithiasis ureterolithiasis: patient with 4 small stones present in her right ureter with associated severe pain and n/v, mild associated hydronephrosis. Urology consulted and patient now s/p ureteroscopy. will dc today on 30days flomax w outpt urolgy follow up heidi: 2/2 partially obstructive ureteral stones as above, expect this to improve now s/p intervention, resolved polycystic kidney disease: per urology not likely to be contributing to her stone formation, chronic and stable issue, avoiding renal toxins n/v: likely largely due to pain, IV phenergan and zofran macrocytosis: chronic, stable, patient denies significant etoh use, defer to op w/u observation status, high risk requiring IV opiates home today Subjective: feels well. ready for dc Objective: Vital Signs Temp Pulse Resp BP Pulse Ox 36.6 C 84 16 150/68 H 96 08/28/18 08:48 08/28/18 08:48 08/28/18 08:48 08/28/18 08:48 08/28/18 08:48 Laboratory Results 08/27/18 04:44 08/28/18 04:48 08/27/18 08/28/18 08/29/18 05:59 05:59 05:59 Intake Total 3150 1670 175 Output Total 1525 1220 Balance 1625 450 175 - Physical Exam Constitutional: no apparent distress, appears nourished Eyes: PERRL, anicteric sclera Ears, Nose, Mouth, Throat: moist mucous membranes, hearing normal Cardiovascular: regular rate and rhythym, no murmur, rub, or gallop Respiratory: no respiratory distress, no rales or rhonchi Gastrointestinal: normoactive bowel sounds, soft, non-tender abdomen Genitourinary: no bladder fullness, No lawson in urethra Skin: warm, normal color Musculoskeletal: full muscle strength ICD10 Worksheet Patient Problems: Problems Problem Status Onset Hydronephrosis, right Acute Intractable abdominal pain Acute Renal colic on right side Acute Unable to take medication Acute Ureterolithiasis Acute Pyelonephritis Acute
--- NOTE | 2018-08-28 09:17 | ASMTLACE ---
MARY Length of stay for Answers: 1 day current admission Acuity / Level of Answers: Yes Care: Did the patient have an inpatient admission? Comorbidities - select Answers: Other Notes: kidney stones all that apply # of Emergency department Answers: 1-2 visits in the last 6 months Social determinants Answers: Mental health diagnosis (anxiety, depression, pers onality disorders, etc.) Score: 9 Date Signed: 08/28/2018 09:16 AM Electronically Signed By:Alyssa Flores RN
--- NOTE | 2018-08-28 09:19 | ASMTDCNOTE ---
Case Management Discharge Discharge Order Complete? Answers: Yes Patient to Obtain Answers: Independently Medications Transportation Arranged Answers: Family/Friends Family Notified Answers: Yes Discharge Comments Notes: Patient medically cleared for discharge to home. No needs identified. CM avialable should needs arise. Date Signed: 08/28/2018 09:18 AM Electronically Signed By:Alyssa Flores RN
--- NOTE | 2018-08-28 09:55 | GDS ---
[f rep st] DISCHARGE SUMMARY DISCHARGE DIAGNOSES: 1. Symptomatic nephrolithiasis with 4 right ureteral stones. 2. Polycystic kidney disease. 3. Acute kidney injury. Please see admission history and physical by Dr. Kameron Patel. The patient presented after failin g outpatient management. She was seen by Urology, who performed stone retrieval with stent placement . The patient had a creatinine that had bumped to 1.3, but fell back to 1.0 on discharge. She is di scharged home on a month of Flomax at Urology's recommendation. She had a low-grade temperature this morning without tachycardia. There was discussion of a 24-hour urine collection, which was not init iated here in the hospital. I gave her a prescription to get this established as an outpatient. She was given the warning signs regarding the fever. /[id number]/MODL
== END 2018-08-28 10:36 | disposition home or self-care (01) ==
LOC: INTOOBSV 13:08 → F1N 15:10
PROVIDERS: ADMIT Internal Medicine; ATTEND Internal Medicine
PROC: 0T768DZ Dilation of Right Ureter with Intraluminal Device, Via Natural or Artificial Opening Endoscopic (ICD-10-PCS; principal; 2018-08-27 12:00)
PROC: BT1F1ZZ Fluoroscopy of Left Kidney, Ureter and Bladder using Low Osmolar Contrast (ICD-10-PCS; principal; 2018-08-27 12:00)
PROC: 0TF68ZZ Fragmentation in Right Ureter, Via Natural or Artificial Opening Endoscopic (ICD-10-PCS; principal; 2018-08-27 12:00)
PROC: 0TC68ZZ Extirpation of Matter from Right Ureter, Via Natural or Artificial Opening Endoscopic (ICD-10-PCS; principal; 2018-08-27 12:00)
DX: N13.2 Hydronephrosis with renal and ureteral calculous obstruction (principal); Q61.3 Polycystic kidney, unspecified; N17.9 Acute kidney failure, unspecified; E86.9 Volume depletion, unspecified; D75.89 Other specified diseases of blood and blood-forming organs; I10 Essential (primary) hypertension; Z87.442 Personal history of urinary calculi
CPT/HCPCS: 52356; 74176; 96361; 96374; 96375; 96376; 99285; C1758; C1769; C1894; G0378; C2625; J0690; J1170; J1885; J2060; J2250; J2405; J2550; J3010; J7613; Q9967